=== PATIENT | female | born 2000 | race Two or more races ===

== ENCOUNTER 2023-03-22 18:32 | Emergency (ER) | payer OTHER ==
[~2023-03-22] VITALS: Ht 160 cm; Wt 73.6 kg
[2023-03-22 18:53] LABS: COVID AG,FIA SOURCE NASAL SWAB
[2023-03-22 19:15] LABS: SARS-COV2 (COVID) ANTIGEN,FIA Negative (Negative)
[2023-03-22 19:16] LABS: INFLUENZA TYPE A NEGATIVE FOR TYPE A (NEGATIVE); INFLUENZA TYPE B NEGATIVE FOR TYPE B (NEGATIVE)
[2023-03-22] MEDS ORDERED: ACETAMINOPHEN 500 MG TABLET ONE (20:07)
[2023-03-22] MEDS ORDERED: ACETAMINOPHEN 500 MG TABLET PO ONE (20:15)
[2023-03-22] MEDS ORDERED: ONDANSETRON HCL 4 MG/2 ML VIAL IVP ONE (20:15)
[2023-03-22] MEDS ORDERED: SODIUM CHLORIDE 0.9% 1,000 ML IV ONE (20:15)
[2023-03-22 21:16] VITALS: BP 102/44; PULSE 110; RESP 16; TEMP 100
== END 2023-03-22 21:40 | disposition home or self-care (01) ==
LOC: EMS 18:34
DX: J98.8 Other specified respiratory disorders (principal); Z88.8 Allergy status to other drugs, medicaments and biological substances; Z98.890 Other specified postprocedural states; Z20.822 Contact with and (suspected) exposure to COVID-19
CPT/HCPCS: 99283; 96374; 96361; 87426; 87804; J2405; J7030

== ENCOUNTER 2024-08-21 20:38 | Emergency (ER) | payer OTHER ==
[~2024-08-21] VITALS: Ht 160 cm; Wt 75.0 kg
[2024-08-21 21:04] VITALS: BP 121/73; PULSE 80; RESP 18; TEMP 99.1; O2SAT 98
== END 2024-08-21 22:10 | disposition left against medical advice (07) ==
LOC: EMS 20:38
DX: K08.89 Other specified disorders of teeth and supporting structures (principal); Z53.21 Procedure and treatment not carried out due to patient leaving prior to being seen by health care provider